=== PATIENT | male | born 1960 | race Caucasian/White ===

== ENCOUNTER 2018-04-24 15:10 | Emergency (ER) | payer MEDICARE, OTHER ==
[~2018-04-24] VITALS: Ht 185.4 cm; Wt 80.0 kg
[2018-04-24 15:50] LABS: BASOPHILS % (AUTO) 0.3 % (0-1); EOSINOPHILS % (AUTO) 0.3 % (0-6); HEMATOCRIT 50.2 % (42.0-52.0); HEMOGLOBIN 16.8 g/dl (14.0-17.9); LYMPHOCYTES # (AUTO) 2.1 X10'3 (1.1-4.8); LYMPHOCYTES % (AUTO) 18.3 % (21-51); MEAN CORPUSCULAR HEMOGLOBIN 30.4 PG (27.0-31.0); MEAN CORPUSCULAR HGB CONC 33.5 % (33.0-36.5); MEAN CORPUSCULAR VOLUME 90.9 FL (78-98); MEAN PLATELET VOLUME 8.4 FL (7.4-10.4); MONOCYTES # (AUTO) 0.8 X10'3 (0-0.9); MONOCYTES % (AUTO) 7.1 % (2-12); NEUTROPHILS # (AUTO) 8.6 X10'3 (1.8-7.7); PLATELET COUNT 280 X10'3 (140-440); RED BLOOD COUNT 5.52 X10'6 (4.70-6.10); RED CELL DISTRIBUTION WIDTH 13.7 % (11.5-14.5); WHITE BLOOD COUNT 11.6 X10'3 (4.5-11.0)
[2018-04-24] MEDS ORDERED: normal saline 1000ML IV soln IVB ONE (16:00)
[2018-04-24 16:02] LABS: ALANINE AMINOTRANSFERASE 26 U/L (12-78); ALKALINE PHOSPHATASE 38 IU/L (46-116); ANION GAP 11 (8-16); ASPARTATE AMINO TRANSFERASE 14 U/L (10-37); BILIRUBIN,TOTAL 0.4 MG/DL (0.1-1.0); BLOOD UREA NITROGEN 20 MG/DL (7-18); BUN/CREATININE RATIO 16.8 (5.4-32.0); CHLORIDE 102 MMOL/L (99-107); CREATININE 1.19 MG/DL (0.60-1.10); ETHANOL < 0.010 GM/DL (0.0-0.010); GLUCOSE 122 MG/DL (70-104); POTASSIUM 3.9 MMOL/L (3.5-5.1); SODIUM 139 MMOL/L (135-145); TOTAL CARBON DIOXIDE 25.8 MMOL/L (24-32); TOTAL PROTEIN 8.1 G/DL (6.4-8.2); eGFR 63 ML/MIN
[2018-04-24] MEDS ORDERED: diazepam 5mg tablet PO ONE (18:15)
[2018-04-24 18:30] LABS: URINE AMPHETAMINE SCREEN NEGATIVE (Neg); URINE BARBITUATE SCREEN NEGATIVE (Neg); URINE BENZODIAZEPINES SCREEN NEGATIVE (Neg); URINE CANNABINOID SCREEN POSITIVE (Neg); URINE COCAINE SCREEN NEGATIVE (Neg); URINE METHADONE SCREEN NEGATIVE (Neg); URINE OPIATE SCREEN POSITIVE (Neg); URINE PHENCYCLIDINE SCREEN NEGATIVE (Neg)
[2018-04-24 20:48] LABS: ACETAMINOPHEN < 2.0 UG/ML (10-30)
[2018-04-24] MEDS ORDERED: BUPR300T53 PO (23:59)
[2018-04-24] MEDS ORDERED: LORA-269 PO (23:59)
[2018-04-24] MEDS ORDERED: PARO40TA PO (23:59)
[2018-04-24] MEDS ORDERED: PER10325T PO (23:59)
[2018-04-25 00:42] LABS: ACETAMINOPHEN < 2.0 UG/ML (10-30)
[2018-04-25] MEDS ORDERED: traZODone 50mg tablet PO SCH (00:45)
[2018-04-25] MEDS: oxyCODONE/APAP 10/325mg tablet PO SCH ×3 (01:00→12:56)
[2018-04-25 05:54] VITALS: BP 127/84
[2018-04-25] MEDS ORDERED: buPROPion SR 150mg tablet PO SCH (08:00)
[2018-04-25] MEDS ORDERED: PARoxetine 20mg tablet PO SCH (08:00)
[2018-04-26] MEDS ORDERED: FLUO20CA22 PO (11:47)
[2018-04-26] MEDS ORDERED: VENL37.589 PO (11:48)
== END 2018-04-25 15:36 ==
LOC: ER 15:11
DX: T42.4X2A Poisoning by benzodiazepines, intentional self-harm, initial encounter (principal); F32.9 Major depressive disorder, single episode, unspecified; Z79.899 Other long term (current) drug therapy; X83.8XXA Intentional self-harm by other specified means, initial encounter
CPT/HCPCS: 36415; 72040; 80053; 80305; 80320; 80329; 85025; 93005; 99285

== ENCOUNTER 2018-04-25 13:00 | Inpatient (IN) | payer MEDICARE, OTHER ==
[~2018-04-25] VITALS: Ht 182.9 cm; Wt 85.0 kg
[~2018-04-25 13:00] MED LIST: BUPR300T53 PO; LORA-269 PO; PARO40TA PO; PER10325T PO
[2018-04-25] MEDS ORDERED: LORazepam 1 MG tablet PO PRN (18:15)
[2018-04-25 19:06] VITALS: BP 119/89
[2018-04-25] MEDS: LORazepam 0.5 MG tablet PO SCH (20:39)
[2018-04-25] MEDS: traZODone 50mg tablet PO PRN ×2 (21:34→22:31)
[2018-04-26] MEDS: HYDROcodone/acetaminophen 10/325mg tab PO PRN ×3 (04:27→22:00)
[2018-04-26 08:00] VITALS: BP 130/92
[2018-04-26] MEDS ORDERED: venlafaxine XR 37.5mg cap (Q24H) PO SCH (08:00)
[2018-04-26] MEDS ORDERED: FLUoxetine 20mg capsule PO SCH (08:00)
[2018-04-26] MEDS ORDERED: buPROPion SR 150mg tablet PO SCH (08:00)
[2018-04-26 08:15] VITALS: BP 130/92
[2018-04-26] MEDS ORDERED: FLUO20CA22 PO (11:47)
[2018-04-26] MEDS ORDERED: VENL37.589 PO (11:48)
[2018-04-26] MEDS ORDERED: mag hydrox/Alum hydrox/simeth 30ml oral suspension PO ONE (16:35)
[2018-04-26 19:00] VITALS: BP 121/85
[2018-04-26] MEDS: LORazepam 0.5 MG tablet PO SCH (21:58)
[2018-04-26] MEDS: traZODone 50mg tablet PO PRN ×2 (21:59→23:42)
[2018-04-27] MEDS ORDERED: mag hydrox/Alum hydrox/simeth 30ml oral suspension PO PRN (00:20)
[2018-04-27 07:40] VITALS: BP 145/89
[2018-04-27] MEDS ORDERED: traZODone 50mg tablet PO PRN (07:40)
[2018-04-27] MEDS ORDERED: buPROPion SR 150mg tablet PO SCH (08:00)
[2018-04-27] MEDS: venlafaxine XR 37.5mg cap (Q24H) PO SCH (08:02)
[2018-04-27] MEDS: buPROPion SR 150mg tablet PO SCH ×2 (08:02→13:36)
[2018-04-27] MEDS: HYDROcodone/acetaminophen 10/325mg tab PO PRN ×2 (13:37→19:36)
[2018-04-27 19:00] VITALS: BP 138/88
[2018-04-27] MEDS: LORazepam 0.5 MG tablet PO SCH (20:20)
[2018-04-27] MEDS ORDERED: traZODone 50mg tablet PO SCH (21:00)
[2018-04-28 07:45] LABS: CHOL/HDL RATIO 3.9 (0.00-4.99); CHOLESTEROL 175 MG/DL (0-200); HDL CHOLESTEROL 45 MG/DL (35-60); LDL CHOLESTEROL 106 MG/DL (50-100); TRIGLYCERIDES 144 MG/DL (20-135)
[2018-04-28 07:47] VITALS: BP 137/95
[2018-04-28] MEDS: venlafaxine XR 37.5mg cap (Q24H) PO SCH (07:57)
[2018-04-28] MEDS: buPROPion SR 150mg tablet PO SCH (07:57)
[2018-04-28] MEDS ORDERED: LORA1TAB PO (08:48)
[2018-04-28] MEDS ORDERED: VENL75TA90 PO (08:48)
[2018-04-28] MEDS ORDERED: TRAZ-146 PO (08:48)
== END 2018-04-28 09:25 | disposition home or self-care (01) | DRG 885 ==
LOC: ADULT MH 13:00
PROVIDERS: ADMIT Psychiatry & Neurology Psychiatry; ATTEND Psychiatry & Neurology Psychiatry
DX: F33.2 Major depressive disorder, recurrent severe without psychotic features (principal); F12.90 Cannabis use, unspecified, uncomplicated; F41.9 Anxiety disorder, unspecified; G89.4 Chronic pain syndrome; M54.5 Low back pain; N18.9 Chronic kidney disease, unspecified; Z79.899 Other long term (current) drug therapy; Z81.8 Family history of other mental and behavioral disorders; Z82.49 Family history of ischemic heart disease and other diseases of the circulatory system; X83.8XXA Intentional self-harm by other specified means, initial encounter
CPT/HCPCS: 36415; 80061; 83036; 84443; 87070; 99285

== ENCOUNTER 2019-06-18 14:34 | Emergency (ER) | payer MEDICARE ==
[~2019-06-18] VITALS: Ht 182.9 cm; Wt 90.9 kg
[~2019-06-18 14:34] MED LIST changes: -LORA-269 PO; +LORA1TAB PO; -PARO40TA PO; -PER10325T PO; +TRAZ-219 PO; +VENL75TA90 PO
[2019-06-18 14:42] VITALS: BP 131/91
== END 2019-06-18 15:11 | disposition home or self-care (01) ==
LOC: ER 14:35
DX: H92.02 Otalgia, left ear (principal); F31.9 Bipolar disorder, unspecified; F12.90 Cannabis use, unspecified, uncomplicated; Z79.899 Other long term (current) drug therapy
CPT/HCPCS: 99281

== ENCOUNTER 2020-08-26 21:30 | Emergency (ER) | payer MEDICARE ==
[~2020-08-26] VITALS: Ht 182.9 cm; Wt 91.3 kg
[~2020-08-26 21:30] MED LIST changes: -TRAZ-219 PO; +TRAZ-256 PO
[2020-08-26 21:32] VITALS: BP 144/98
[2020-08-26] MEDS ORDERED: rabies vaccine (PCEC)/PF 2.5 unit kit IMVAC ONE (21:50)
[2020-08-26] MEDS ORDERED: rabies immune globulin/PF 150 unit/ml inj IMVAC ONE (21:50)
[2020-08-26] MEDS ORDERED: TETanus/Pertussis (Acell)/Diphther VAC/PF (Tdap-Adult) 0.5ml syringe IMVAC ONE (21:50)
[2020-08-26] MEDS ORDERED: AMOX-419 PO (21:53)
== END 2020-08-26 22:23 | disposition home or self-care (01) ==
LOC: ER 21:31
DX: S81.812A Laceration without foreign body, left lower leg, initial encounter (principal); F32.9 Major depressive disorder, single episode, unspecified; F12.90 Cannabis use, unspecified, uncomplicated; Z72.89 Other problems related to lifestyle; Z79.2 Long term (current) use of antibiotics; Z79.899 Other long term (current) drug therapy; W54.0XXA Bitten by dog, initial encounter; Y93.89 Activity, other specified; Y92.89 Other specified places as the place of occurrence of the external cause; Y99.8 Other external cause status
CPT/HCPCS: 90375; 90471; 90472; 90675; 90715; 96372; 99284

== ENCOUNTER 2020-08-29 14:01 | Emergency (ER) | payer MEDICARE ==
[~2020-08-29] VITALS: Ht 185.4 cm; Wt 81.0 kg
[~2020-08-29 14:01] MED LIST changes: +AMOX-419 PO
[2020-08-29 14:07] VITALS: BP 147/102
[2020-08-29] MEDS ORDERED: rabies vaccine (PCEC)/PF 2.5 unit kit IMVAC ONE (15:00)
== END 2020-08-29 15:28 | disposition home or self-care (01) ==
LOC: ER 14:02
DX: Z23 Encounter for immunization (principal)
CPT/HCPCS: 90471; 90675; 99281

== ENCOUNTER 2020-09-02 14:18 | Emergency (ER) | payer MEDICARE ==
[~2020-09-02] VITALS: Ht 182.9 cm; Wt 88.3 kg
[2020-09-02 14:27] VITALS: BP 143/95
[2020-09-02] MEDS ORDERED: rabies vaccine (PCEC)/PF 2.5 unit kit IMVAC ONE (14:35)
== END 2020-09-02 14:56 | disposition home or self-care (01) ==
LOC: ER 14:19
DX: S81.812D Laceration without foreign body, left lower leg, subsequent encounter (principal); F32.9 Major depressive disorder, single episode, unspecified; F12.90 Cannabis use, unspecified, uncomplicated; Z72.89 Other problems related to lifestyle; Z79.2 Long term (current) use of antibiotics; Z79.899 Other long term (current) drug therapy; W54.0XXD Bitten by dog, subsequent encounter
CPT/HCPCS: 90471; 90675; 99281

== ENCOUNTER 2020-09-09 11:30 | Emergency (ER) | payer MEDICARE ==
[~2020-09-09] VITALS: Ht 182.9 cm; Wt 88.0 kg
[~2020-09-09 11:30] MED LIST changes: -AMOX-419 PO
[2020-09-09 11:38] VITALS: BP 140/89
[2020-09-09] MEDS ORDERED: rabies vaccine (PCEC)/PF 2.5 unit kit IMVAC ONE (14:00)
== END 2020-09-09 14:35 | disposition home or self-care (01) ==
LOC: ER 11:31
DX: Z23 Encounter for immunization (principal); F12.90 Cannabis use, unspecified, uncomplicated; Z79.899 Other long term (current) drug therapy
CPT/HCPCS: 90471; 90675; 99281

== ENCOUNTER 2020-09-23 09:43 | Emergency (ER) | payer MEDICARE ==
[~2020-09-23] VITALS: Ht 182.9 cm; Wt 90.3 kg
[2020-09-23] MEDS ORDERED: rabies vaccine (PCEC)/PF 2.5 unit kit IMVAC ONE (09:45)
[2020-09-23 09:53] VITALS: BP 128/86
== END 2020-09-23 11:27 | disposition home or self-care (01) ==
LOC: ER 09:43
DX: Z23 Encounter for immunization (principal); F32.9 Major depressive disorder, single episode, unspecified; Z79.899 Other long term (current) drug therapy
CPT/HCPCS: 90471; 90675; 99281; 99283